=== PATIENT | female | born 1995 | race African-American/Black ===

== ENCOUNTER 2018-03-19 18:58 | Emergency (ER) | payer BC ==
[2018-03-19 19:25] VITALS: BP 114/73; PULSE 95; RESP 14; TEMP 99.1; O2SAT 100
[2018-03-19 21:22] LABS: BACTERIA, URINE RARE /hpf; BILIRUBIN, URINE NEG (NEG); BLOOD, URINE SMALL (NEG); GLUCOSE,URINE NEG (NEG); KETONE, URINE NEG (NEG); NITRITE,URINE NEG (NEG); SQUAMOUS EPITHELIAL CELL URINE 4 /hpf (0-5); URINE COLOR Straw (YELLW/STRAW); URINE LEUKOCYTE ESTERASE MOD (NEG)
--- NOTE | 2018-03-19 22:38 | PD ---
HPI Chief Complaint: Complaint Time Seen by Provider: 22:24 Travel History International Travel<30 days: No Contact w/Intl Traveler<30days: No Traveled to known affect area: No History of Present Illness HPI The patient is a 22-year-old female who presents to the emergency department for evaluation of possible sexually transmitted infection. The patient has been having protected sex with a condom with one individual over the last several weeks. The patient states one time the condom was dry and she received a small tear to the upper aspect of the labia. She also notes some white vaginal discharge which she states is normal, however, it is heavier than normal. She denies any foul odor. She does complain of mild burning upon urination but denies any unusual rashes or lesions vaginal area except for a small tear. She denies any history of previous sexually transmitted infections. She denies any associated nausea, vomiting, or abdominal pain. PFSH Past Medical History Medical History: Denies Significant Hx Diminished Hearing: No Immunizations Current: Yes ?: Not Past Surgical History Surgical History: No Previous Surgery Social History Alcohol Use: No Tobacco Use: No Substance Use: No Allergies-Medications (Allergen,Severity, Reaction): Coded Allergies: No Known Allergies (Unverified , 03/19/18) Review of Systems Except as stated in HPI: all other systems reviewed are Neg General / Constitutional: No: Fever Gastrointestinal: No: Nausea, Vomiting, Abdominal Pain Genitourinary: Positive: Dysuria, Discharge, No: Urgency, Frequency, Decreased Urinary Output, Vaginal Bleeding Skin: No Rash, No Itching Physical Exam Narrative GENERAL: Awake, alert, pleasant 22-year-old female who appears her stated age and is in no acute respiratory distress. SKIN: Focused skin assessment warm/dry. HEAD: Atraumatic. Normocephalic. EYES: No injection or drainage. GASTROINTESTINAL: Abdomen soft, non-tender, nondistended. No rebound tenderness , guarding, or rigidity. Back: No CVA tenderness. Pelvic: The exam was performed in the presence of a female nurse. External examination reveals an ulcerated lesion at the inferior aspect of the labia minora as well as several that are just outside the labia majora on the or tender to palpation, have a herpetic appearance. Speculum examination reveals thick white discharge in the vaginal vault. Cervix is closed. There is no cervical motion tenderness. No adnexal tenderness. MUSCULOSKELETAL: No obvious deformities. No clubbing. No cyanosis. No edema. NEUROLOGICAL: Awake and alert. No obvious cranial nerve deficits. Motor grossly within normal limits. Normal speech. PSYCHIATRIC: Appropriate mood and affect; insight and judgment normal. Data Data Last Documented VS Vital Signs Date Time Temp Pulse Resp B/P (MAP) Pulse Ox O2 Delivery O2 Flow Rate FiO2 03/19/18 19:25 99.1 95 14 114/73 (87) 100 Orders Orders Urinalysis - C+S If Indicated (03/19/18 20:49) Gc And Chlamydia Pcr (03/19/18 22:31) Wet Prep Profile (03/19/18 22:31) Ed Urine Pregnancytest Poc (03/19/18 22:31) Herpes Simplex Virus Culture (03/19/18 22:46) Ed Discharge Order (03/19/18 23:54) Labs Laboratory Tests Test 03/19/18 20:50 03/19/18 22:55 Urine Color Straw Urine Turbidity CLEAR Urine pH 6.0 Urine Specific [place] 1.002 Urine Protein NEG mg/dL Urine Glucose (UA) NEG mg/dL Urine Ketones NEG mg/dL Urine Occult Blood SMALL Urine Nitrite NEG Urine Bilirubin NEG Urine Urobilinogen LESS THAN 2 mg/dL Urine Leukocyte Esterase MOD Urine RBC 4 /hpf Urine WBC 4 /hpf Urine Squamous Epithelial Cells 4 /hpf Urine Bacteria RARE /hpf Microscopic Urinalysis Comment CULT NOT INDICATED Clue Cells (Wet Prep) PRESENT Vaginal Trichomonas (Wet Prep) NONE SEEN Vaginal Yeast (Wet Prep) NONE SEEN MDM Medical Decision Making Medical Screen Exam Complete: Yes Emergency Medical Condition: Yes Medical Record Reviewed: Yes Interpretation(s) Laboratory Tests Test 03/19/18 20:50 03/19/18 22:55 Urine Color Straw Urine Turbidity CLEAR Urine pH 6.0 Urine Specific [place] 1.002 Urine Protein NEG mg/dL Urine Glucose (UA) NEG mg/dL Urine Ketones NEG mg/dL Urine Occult Blood SMALL Urine Nitrite NEG Urine Bilirubin NEG Urine Urobilinogen LESS THAN 2 mg/dL Urine Leukocyte Esterase MOD Urine RBC 4 /hpf Urine WBC 4 /hpf Urine Squamous Epithelial Cells 4 /hpf Urine Bacteria RARE /hpf Microscopic Urinalysis Comment CULT NOT INDICATED Clue Cells (Wet Prep) PRESENT Vaginal Trichomonas (Wet Prep) NONE SEEN Vaginal Yeast (Wet Prep) NONE SEEN Differential Diagnosis Differential diagnosis includes PID, cervicitis, UTI, vaginitis, labial tear, normal exam. Narrative Course A UA was sent to lab, was unremarkable. A pelvic exam was completed in the presence of a female nurse. Wet prep and gonorrhea/chlamydia were sent to lab. A herpes culture was also sent to lab. The patient's wet prep is positive for clue cells, the patient will be treated for bacterial vaginosis. I will treat presumptively for possible genital herpes simplex virus. Diagnosis Primary Impression: Bacterial vaginosis Additional Impression: Herpes simplex virus (HSV) infection Patient Instructions: General Instructions Additional Instructions: Medications as directed. Follow-up with a global chief experience officer. Return if symptoms worsen or progress. Med/Other Pt SpecificInfo: Prescription(s) given Scripts Metronidazole (Flagyl) 500 Mg Tab 500 MG PO BID for Infection for 7 Days, #14 TAB 0 Refills Prov: Luis Lemon MD 03/20/18 Acyclovir (Acyclovir) 400 Mg Tab 400 MG PO TID for Mgmt Viral Infection for 7 Days, TAB 0 Refills Prov: Luis Lemon MD 03/20/18 Disposition: DISCHARGE HOME Condition: Stable Luis Lemon MD Mar 19, 2018 22:38
[2018-03-20] MEDS ORDERED: ACYC400T PO
[2018-03-20] MEDS ORDERED: METR-1 PO
== END 2018-03-20 01:13 | disposition home or self-care (01) ==
LOC: NEPD 18:58
DX: N76.0 Acute vaginitis (principal); B00.9 Herpesviral infection, unspecified; R30.0 Dysuria
CPT/HCPCS: 81001; 87210; 87255; 87491; 87591; 99284